=== PATIENT | male | born 1985 | race Caucasian/White ===

== ENCOUNTER 2017-08-10 18:19 | Emergency (ER) | payer SELFPAY ==
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
[2017-08-10] MEDS ORDERED: NICOTINE 21 MG/24 HR PATCH TD ONE (18:38)
[2017-08-10 19:00] LABS: PLATELET COUNT 249 10^3/uL (150-400)
[2017-08-10 22:33] VITALS: BP 126/80; PULSE 83; RESP 16; TEMP 98.4; O2SAT 96
[2017-08-10] MEDS ORDERED: OLANZapine DISINTEGR 10 MG TAB ONE (23:38)
[2017-08-10] MEDS ORDERED: LORazepam 1 MG TAB ONE (23:38)
[2017-08-10] MEDS ORDERED: OLANZapine DISINTEGR 10 MG TAB PO ONE (23:40)
[2017-08-10] MEDS ORDERED: LORazepam 1 MG TAB PO ONE (23:40)
== END 2017-08-11 00:33 ==
DX: R45.851 Suicidal ideations (principal); F17.200 Nicotine dependence, unspecified, uncomplicated
CPT/HCPCS: 80305; G0480